=== PATIENT | female | born 1970 | race Two or more races ===

== ENCOUNTER 2021-06-02 14:22 | Emergency (ER) | payer OTHER ==
[~2021-06-02] VITALS: Ht 167.6 cm; Wt 132.0 kg
[2021-06-02 15:47] LABS: Basophils # (auto) 0.1 10 ^3/uL (0-0.2); Basophils % (auto) 0.9 % (0.0-2.0); Eosinophils # (auto) 0.1 10 ^3/uL (0-0.8); Eosinophils % (auto) 1.1 % (0.0-7.0); Hematocrit 37.7 % (36.0-46.0); Hemoglobin 12.8 g/dL (12.2-16.2); Lymphocytes # (auto) 1.6 10 ^3/uL (0.4-5.4); Lymphocytes % (auto) 18.4 % (10.0-50.0); Mean Corpuscular Hemoglobin 30.9 pg (28.0-32.0); Mean Corpuscular Hgb Conc. 34.1 g/dL (32.0-36.0); Mean Corpuscular Volume 90.8 fL (80.0-100.0); Monocytes # (auto) 0.5 10 ^3/uL (0-1.3); Monocytes % (auto) 6.1 % (0.0-12.0); Neutrophils # (auto) 6.3 10 ^3/uL (1.6-8.6); Neutrophils % (auto) 73.5 % (37.0-80.0); Red Blood Cells 4.15 10^6/uL (4.0-5.20); Red Cell Distribution Width 14.5 % (11.8-14.3); White Blood Cell 8.6 10^3/uL (4.4-10.8)
[2021-06-02 15:59] LABS: Albumin 3.4 g/dL (3.4-5.0); Potassium 3.7 mmol/L (3.5-5.1)
[2021-06-02 16:17] LABS: Bilirubin, Total 0.3 mg/dL (0.2-1.0); Total Protein 6.8 g/dL (6.4-8.2)
[2021-06-02] MEDS ORDERED: IOHEXOL 350 MG/ML 100ML IJ ONE (19:13)
[2021-06-02] MEDS ORDERED: diphenhdrAMINE HCL 50 MG/1 ML VL IV ONE (20:15)
[2021-06-02] MEDS ORDERED: IOHEXOL 300 MG/ML 100ML BOTTLE IJ ONE (20:50)
[2021-06-02 21:30] VITALS: BP 169/79
[2021-06-02 22:00] LABS: Urine WBC None Seen /hpf (0 - 5)
[2021-06-02 22:08] LABS: Urine Bacteria NONE SEEN /hpf (None Seen); Urine Blood Negative /uL (Negative); Urine Mucus FEW (None Seen)
[2021-06-02 22:18] LABS: Urine Specific Gravity > 1.050 (1.001-1.035)
== END 2021-06-03 00:27 | disposition home or self-care (01) ==
LOC: ER 14:22
DX: R22.1 Localized swelling, mass and lump, neck (principal)
CPT/HCPCS: 36415; 70491; 71275; 80053; 81001; 84484; 85025; 93005; 96374; 99285; J1200; Q9967

== ENCOUNTER 2023-12-02 10:16 | Inpatient (IN) | payer OTHER ==
[~2023-12-02] VITALS: Ht 167.6 cm; Wt 104.0 kg
[2023-12-02 10:57] LABS: Basophils # (auto) 0.1 10 ^3/uL (0-0.2); Basophils % (auto) 0.5 % (0.0-2.0); Eosinophils # (auto) 0 10 ^3/uL (0-0.8); Hematocrit 39.7 % (36.0-46.0); Hemoglobin 13.9 g/dL (12.2-16.2); Lymphocytes # (auto) 0.8 10 ^3/uL (0.4-5.4); Mean Corpuscular Hemoglobin 31.6 pg (28.0-32.0); Mean Corpuscular Hgb Conc. 34.9 g/dL (32.0-36.0); Mean Corpuscular Volume 90.5 fL (80.0-100.0); Monocytes # (auto) 0.9 10 ^3/uL (0-1.3); Monocytes % (auto) 4.1 % (0.0-12.0); Neutrophils # (auto) 19.3 10 ^3/uL (1.6-8.6); Neutrophils % (auto) 91.4 % (37.0-80.0); Platelet Count (auto) 323 10^3/uL (140-450); Red Blood Cells 4.39 10^6/uL (4.0-5.20); Red Cell Distribution Width 14.2 % (11.8-14.3); White Blood Cell 21.1 10^3/uL (4.4-10.8)
[2023-12-02 11:16] LABS: Alanine Aminotransferase 160 U/L (7-40); Albumin 4.1 g/dL (3.2-4.8); Alkaline Phosphatase 735 U/L (46-116); Anion Gap 9 (5-15); Aspartate Aminotransferase 175 U/L (13-40); BUN/Creatinine Ratio 29.8 (10.0-20.0); Bilirubin, Total 2.3 mg/dL (0.2-1.0); Blood Urea Nitrogen 36 mg/dL (9-23); Calcium 9.4 mg/dL (8.7-10.4); Carbon Dioxide 26 mmol/L (20-30); Chloride 87 mmol/L (98-107); Glucose 113 mg/dL (74-106); Lipase 27 U/L (12-53); Sodium 122 mmol/L (136-145)
[2023-12-02 11:17] LABS: Total Protein 6.9 g/dL (5.7-8.2)
[2023-12-02 12:29] LABS: Urine Bacteria None Seen /hpf (None Seen)
[2023-12-02 13:06] LABS: Urine Blood TRACE /uL (Negative); Urine Clarity Turbid (Clear); Urine Color Dark-Yellow (Yellow); Urine Mucus FEW (None Seen); Urine Protein, UAD 1+ (Negative); Urine Specific Gravity 1.033 (1.001-1.035); Urine Urobilinogen 8 mg/dL (Negative); Urine WBC 18 /hpf (0 - 5); Urine pH 5.5 (5.0-9.0)
[2023-12-02] MEDS: SODIUM CHLORIDE 0.9% 1,000 ML IV ONE (13:25)
[2023-12-02] MEDS: ONDANSETRON HCL 4 MG/2 ML VIAL IM ONE (13:25)
[2023-12-02] MEDS: fentaNYL CITRATE 100 MCG/2 ML VL IM ONE (16:00)
[2023-12-02] MEDS: cefTRIAXone 1GM/50ML D5W 50 ML IV ONE (16:09)
[2023-12-02] MEDS ORDERED: SODIUM CHLORIDE 0.9% 1,000 ML IV SCH (16:30)
[2023-12-02] MEDS: metroNIDAZOLE 500MG/100ML 100 ML IV ONE (16:31)
[2023-12-02] MEDS: POTASSIUM CHL 20MEQ/100ML 100 ML IV ONE (17:19)
[2023-12-02] MEDS: SODIUM CHLORIDE 0.9% 1,000 ML IV SCH (17:30)
[2023-12-02 17:40] LABS: INR 1.05 (0.9-1.15); Partial Thromboplastin Time 32.9 SEC (24.5-34.5); Prothrombin Time 11.1 sec (9.3-11.8)
[2023-12-02] MEDS: NICOTINE 7MG/24HR TOPICAL PATCH TD ONE (19:17)
[2023-12-02] MEDS: PANTOPRAZOLE 40 MG/10 ML VIAL INJ IV ONE (19:18)
[2023-12-02] MEDS: POTASSIUM CHL 20MEQ/100ML 100 ML IV SCH (20:06)
[2023-12-02] MEDS: HYDROcodone-ACET 5/325MG TAB PO PRN (20:34)
[2023-12-02] MEDS: metroNIDAZOLE 500MG/100ML 100 ML IV SCH (22:15)
[2023-12-03] VITALS (9 sets, daily range): BP systolic 99–103; BP diastolic 62–68; PULSE 83–103; RESP 16–20; TEMP 97.7–98.3; O2SAT 93–98
[2023-12-03 04:14] LABS: Basophils # (auto) 0 10 ^3/uL (0-0.2); Basophils % (auto) 0.2 % (0.0-2.0); Eosinophils # (auto) 0 10 ^3/uL (0-0.8); Eosinophils % (auto) 0.2 % (0.0-7.0); Hematocrit 35.6 % (36.0-46.0); Hemoglobin 12.3 g/dL (12.2-16.2); Lymphocytes # (auto) 0.9 10 ^3/uL (0.4-5.4); Lymphocytes % (auto) 4.6 % (10.0-50.0); Mean Corpuscular Hemoglobin 31.6 pg (28.0-32.0); Mean Corpuscular Hgb Conc. 34.5 g/dL (32.0-36.0); Mean Corpuscular Volume 91.7 fL (80.0-100.0); Monocytes % (auto) 5.4 % (0.0-12.0); Neutrophils # (auto) 17.5 10 ^3/uL (1.6-8.6); Neutrophils % (auto) 89.6 % (37.0-80.0); Platelet Count (auto) 299 10^3/uL (140-450); Red Blood Cells 3.89 10^6/uL (4.0-5.20); Red Cell Distribution Width 14.6 % (11.8-14.3); White Blood Cell 19.5 10^3/uL (4.4-10.8)
[2023-12-03 04:43] LABS: Alanine Aminotransferase 92 U/L (7-40); Albumin 3.6 g/dL (3.2-4.8); Alkaline Phosphatase 462 U/L (46-116); Anion Gap 9 (5-15); Aspartate Aminotransferase 37 U/L (13-40); BUN/Creatinine Ratio 36.8 (10.0-20.0); Blood Urea Nitrogen 28 mg/dL (9-23); Carbon Dioxide 24 mmol/L (20-30); Chloride 93 mmol/L (98-107); Glucose 81 mg/dL (74-106); Potassium 3.5 mmol/L (3.5-5.1); Sodium 126 mmol/L (136-145); Total Protein 6.1 g/dL (5.7-8.2)
[2023-12-03] MEDS: ONDANSETRON HCL 4 MG/2 ML VIAL IV PRN (08:26)
[2023-12-03] MEDS: MORPHINE SULFATE INJ 2 MG/ml SYRG IV PRN (08:27)
[2023-12-03] MEDS: cefTRIAXone 1GM/50ML D5W 50 ML IV SCH (09:06)
[2023-12-03] MEDS: PANTOPRAZOLE 40 MG TAB PO ONE (09:33)
[2023-12-03] MEDS ORDERED: PANTOPRAZOLE 40 MG/10 ML VIAL INJ IV SCH (10:00)
[2023-12-03] MEDS: NICOTINE 7MG/24HR TOPICAL PATCH TD SCH (10:07)
[2023-12-03] MEDS: SUCRALFATE 1 GM TAB PO SCH (11:30)
[2023-12-03] MEDS: ACETAMINOPHEN 325 MG TAB PO PRN (11:53)
[2023-12-03 12:46] LABS: Rapid Influenza A Negative (Negative); Rapid Influenza B Negative (Negative)
[2023-12-03 13:04] LABS: COVID19 ANTIGEN SOFIA FIA NEGATIVE (NEGATIVE)
[2023-12-03] MEDS ORDERED: ALBU108A5 PO (14:38)
[2023-12-03] MEDS ORDERED: HYDR25TA5 PO (14:38)
[2023-12-03] MEDS ORDERED: PANT40T PO (14:38)
[2023-12-03] MEDS ORDERED: ALPR1TAB7 PO (14:38)
[2023-12-03] MEDS ORDERED: PIPERACILLIN-TAZOB 3.375GM 100 ML IV ONE ×2 (15:15→15:30)
[2023-12-03] MEDS: SODIUM CHLORIDE 0.9% 250 ML IV ONE (15:47)
[2023-12-03] MEDS: ALBUTEROL SULF 2.5 MG/0.5ML(0.5%) NEB SOLN NEB PRN (16:05)
[2023-12-03] MEDS: FAMOTIDINE (10MG/ML) 2ML VL IV ONE (17:11)
[2023-12-03] MEDS: PIPERACILLIN-TAZOB 3.375GM 100 ML IV ONE (17:11)
[2023-12-03] MEDS: PIPERACILLIN-TAZOB 3.375GM 100 ML IV SCH (21:42)
[2023-12-03] MEDS: FAMOTIDINE (10MG/ML) 2ML VL IV SCH (21:42)
[2023-12-03 23:40] LABS: Amphetamine Screen, Urine Neg (NEGATIVE); Barbiturate Scree,Urine Neg (NEGATIVE); Benzodiazephine Screen, Urine Pos (NEGATIVE)
[2023-12-03 23:41] LABS: Cannabinoid Screen, Urine Neg (NEGATIVE); Cocaine Screen, Urine Neg (NEGATIVE); Opiate Scree,Urine Pos (NEGATIVE); Phencyclidine Screen, Urine Neg (NEGATIVE)
[2023-12-04] VITALS (13 sets, daily range): BP systolic 107–123; BP diastolic 63–82; PULSE 68–106; RESP 14–22; TEMP 97.9–98.4; O2SAT 90–99
[2023-12-04] MEDS ORDERED: PANTOPRAZOLE 40 MG TAB PO SCH (06:00)
[2023-12-04] MEDS: diphenhdrAMINE HCL 50 MG/1 ML VL IV PRN (08:22)
[2023-12-04 08:23] LABS: Basophils # (auto) 0 10 ^3/uL (0-0.2); Basophils % (auto) 0.1 % (0.0-2.0); Eosinophils # (auto) 0 10 ^3/uL (0-0.8); Hematocrit 34.8 % (36.0-46.0); Hemoglobin 11.8 g/dL (12.2-16.2); Lymphocytes # (auto) 0.9 10 ^3/uL (0.4-5.4); Lymphocytes % (auto) 4.7 % (10.0-50.0); Mean Corpuscular Hemoglobin 30.9 pg (28.0-32.0); Mean Corpuscular Hgb Conc. 33.8 g/dL (32.0-36.0); Mean Corpuscular Volume 91.4 fL (80.0-100.0); Monocytes # (auto) 1.2 10 ^3/uL (0-1.3); Monocytes % (auto) 6.4 % (0.0-12.0); Neutrophils # (auto) 16.4 10 ^3/uL (1.6-8.6); Neutrophils % (auto) 88.8 % (37.0-80.0); Platelet Count (auto) 316 10^3/uL (140-450); Red Blood Cells 3.81 10^6/uL (4.0-5.20); Red Cell Distribution Width 14.9 % (11.8-14.3); White Blood Cell 18.5 10^3/uL (4.4-10.8)
[2023-12-04 08:44] LABS: Alanine Aminotransferase 53 U/L (7-40); Alkaline Phosphatase 318 U/L (46-116); Calcium 9.1 mg/dL (8.7-10.4); Carbon Dioxide 23 mmol/L (20-30); Chloride 101 mmol/L (98-107); Glucose 95 mg/dL (74-106); Potassium 2.9 mmol/L (3.5-5.1)
[2023-12-04 08:45] LABS: Albumin 3.4 g/dL (3.2-4.8); Anion Gap 11 (5-15); Aspartate Aminotransferase 16 U/L (13-40); BUN/Creatinine Ratio 18.4 (10.0-20.0); Bilirubin, Total 0.8 mg/dL (0.2-1.0); Blood Urea Nitrogen 9 mg/dL (9-23); Magnesium 2.1 mg/dL (1.6-2.6)
[2023-12-04 08:46] LABS: Total Protein 5.7 g/dL (5.7-8.2)
[2023-12-04 08:51] LABS: Sodium 135 mmol/L (136-145)
[2023-12-04] MEDS: POTASSIUM CHLORIDE 60 MEQ, LIDOCAINE 1% (LOCAL ANESTH.) 6 ML in SODIUM CHL 0.9% 500 ML IV ONE (11:42)
[2023-12-04] MEDS: MORPHINE SULFATE INJ 2 MG/ml SYRG IV PRN (11:46)
[2023-12-04] MEDS: POTASSIUM CHL 20 Meq TABLET PO ONE (17:52)
[2023-12-04 20:01] LABS: Chloride 104 mmol/L (98-107); Potassium 3.5 mmol/L (3.5-5.1); Sodium 136 mmol/L (136-145)
[2023-12-04 20:02] LABS: Anion Gap 7 (5-15); Calcium 9.4 mg/dL (8.7-10.4); Carbon Dioxide 25 mmol/L (20-30)
[2023-12-04 20:07] LABS: BUN/Creatinine Ratio 13.3 (10.0-20.0); Blood Urea Nitrogen 6 mg/dL (9-23); Glucose 94 mg/dL (74-106)
[2023-12-05] VITALS (12 sets, daily range): BP systolic 99–128; BP diastolic 54–75; PULSE 82–99; RESP 17–18; TEMP 97.5–98; O2SAT 96–99
[2023-12-05 07:13] LABS: Basophils # (auto) 0 10 ^3/uL (0-0.2); Basophils % (auto) 0.1 % (0.0-2.0); Eosinophils # (auto) 0 10 ^3/uL (0-0.8); Eosinophils % (auto) 0.1 % (0.0-7.0); Hematocrit 31.2 % (36.0-46.0); Hemoglobin 10.7 g/dL (12.2-16.2); Lymphocytes % (auto) 5.9 % (10.0-50.0); Mean Corpuscular Hemoglobin 31.3 pg (28.0-32.0); Mean Corpuscular Hgb Conc. 34.2 g/dL (32.0-36.0); Mean Corpuscular Volume 91.4 fL (80.0-100.0); Monocytes # (auto) 1.1 10 ^3/uL (0-1.3); Monocytes % (auto) 6.8 % (0.0-12.0); Neutrophils # (auto) 14.2 10 ^3/uL (1.6-8.6); Neutrophils % (auto) 87.1 % (37.0-80.0); Platelet Count (auto) 319 10^3/uL (140-450); Red Blood Cells 3.41 10^6/uL (4.0-5.20); White Blood Cell 16.3 10^3/uL (4.4-10.8)
[2023-12-05 07:32] LABS: Alanine Aminotransferase 44 U/L (7-40); Albumin 3.2 g/dL (3.2-4.8); Alkaline Phosphatase 399 U/L (46-116); Anion Gap 7 (5-15); Aspartate Aminotransferase 20 U/L (13-40); BUN/Creatinine Ratio 13.3 (10.0-20.0); Blood Urea Nitrogen 6 mg/dL (9-23); Calcium 9.2 mg/dL (8.7-10.4); Carbon Dioxide 27 mmol/L (20-30); Chloride 105 mmol/L (98-107); Glucose 99 mg/dL (74-106); Magnesium 1.9 mg/dL (1.6-2.6); Potassium 3.6 mmol/L (3.5-5.1); Sodium 139 mmol/L (136-145)
[2023-12-05 07:33] LABS: Bilirubin, Total 0.8 mg/dL (0.2-1.0); Phosphorus 2.5 mg/dL (2.4-5.1); Total Protein 5.4 g/dL (5.7-8.2)
[2023-12-06] VITALS (13 sets, daily range): BP systolic 93–129; BP diastolic 58–84; PULSE 86–101; RESP 15–19; TEMP 97.8–98.3; O2SAT 92–100
[2023-12-06 07:28] LABS: Hematocrit 31.8 % (36.0-46.0); Hemoglobin 10.8 g/dL (12.2-16.2); Mean Corpuscular Hemoglobin 30.9 pg (28.0-32.0); Mean Corpuscular Hgb Conc. 33.8 g/dL (32.0-36.0); Mean Corpuscular Volume 91.5 fL (80.0-100.0); Platelet Count (auto) 326 10^3/uL (140-450); Red Blood Cells 3.48 10^6/uL (4.0-5.20); Red Cell Distribution Width 15.6 % (11.8-14.3); White Blood Cell 12.3 10^3/uL (4.4-10.8)
[2023-12-06 07:36] LABS: Alanine Aminotransferase 34 U/L (7-40); Alkaline Phosphatase 307 U/L (46-116); Anion Gap 4 (5-15); Blood Urea Nitrogen 6 mg/dL (9-23); Carbon Dioxide 30 mmol/L (20-30); Chloride 105 mmol/L (98-107); Glucose 92 mg/dL (74-106); Magnesium 1.7 mg/dL (1.6-2.6); Potassium 3.3 mmol/L (3.5-5.1); Sodium 139 mmol/L (136-145)
[2023-12-06 07:37] LABS: Albumin 3.1 g/dL (3.2-4.8); Aspartate Aminotransferase 21 U/L (13-40)
[2023-12-06 07:38] LABS: Bilirubin, Total 0.7 mg/dL (0.2-1.0); Total Protein 5.3 g/dL (5.7-8.2)
[2023-12-06 07:45] LABS: Basophils % (manual) 0 (0.0-2.0); Blast Cells 0; Eosinophils % (manual) 0 (0-7); Myelocytes % 0; Promyelocytes % 0; Reactive Lymphocytes 0
[2023-12-06] MEDS: POTASSIUM EFFERVESENT TAB 25 MEQ PO ONE (09:29)
[2023-12-06 12:38] LABS: Band Neutrophils % (manual) 5; Lymphocytes % (manual) 10 (10.0-50.0); Metamyelocytes % 2; Monocytes % (manual) 7 (0-12); Platelet Estimate Adequate
[2023-12-06] MEDS: LORazepam 2MG/ML-1ML VIAL IV ONE (12:59)
[2023-12-06] MEDS: MORPHINE SULFATE INJ 2 MG/ml SYRG IV PRN (17:07)
[2023-12-07] VITALS (12 sets, daily range): BP systolic 108–136; BP diastolic 69–78; PULSE 88–121; RESP 17–20; TEMP 97.8–99.7; O2SAT 96–99
[2023-12-07 07:14] LABS: Hematocrit 33.3 % (36.0-46.0); Hemoglobin 11.1 g/dL (12.2-16.2); Mean Corpuscular Hemoglobin 30.6 pg (28.0-32.0); Mean Corpuscular Hgb Conc. 33.3 g/dL (32.0-36.0); Platelet Count (auto) 335 10^3/uL (140-450); Red Blood Cells 3.62 10^6/uL (4.0-5.20); Red Cell Distribution Width 15.3 % (11.8-14.3); White Blood Cell 11.1 10^3/uL (4.4-10.8)
[2023-12-07 07:20] LABS: Band Neutrophils % (manual) 0; Basophils % (manual) 0 (0.0-2.0); Blast Cells 0; Eosinophils % (manual) 0 (0-7); Metamyelocytes % 0; Reactive Lymphocytes 0
[2023-12-07 07:28] LABS: Alanine Aminotransferase 37 U/L (7-40); Albumin 3.3 g/dL (3.2-4.8); Alkaline Phosphatase 260 U/L (46-116); Anion Gap 6 (5-15); Aspartate Aminotransferase 31 U/L (13-40); Calcium 9.3 mg/dL (8.7-10.4); Carbon Dioxide 29 mmol/L (20-30); Chloride 105 mmol/L (98-107); Glucose 101 mg/dL (74-106); Potassium 3.7 mmol/L (3.5-5.1); Sodium 140 mmol/L (136-145)
[2023-12-07 07:29] LABS: Bilirubin, Total 0.7 mg/dL (0.2-1.0); Phosphorus 3.1 mg/dL (2.4-5.1); Total Protein 5.5 g/dL (5.7-8.2)
[2023-12-07 07:39] LABS: BUN/Creatinine Ratio 10.9 (10.0-20.0); Blood Urea Nitrogen < 5 mg/dL (9-23)
[2023-12-07 07:40] LABS: INR 1.08 (0.9-1.15); Partial Thromboplastin Time 26.2 SEC (24.5-34.5); Prothrombin Time 11.4 sec (9.3-11.8)
[2023-12-07 08:15] LABS: Magnesium 1.7 mg/dL (1.6-2.6)
[2023-12-07] MEDS: ceFAZolin 2 GM/D5W100ml 100 ML IV ONE (08:47)
[2023-12-07] MEDS ORDERED: MORPHINE SULFATE INJ 2 MG/ml SYRG IV PRN (09:15)
[2023-12-07] MEDS ORDERED: HYDROmorphone HCL 2 MG/ML VL/or syr IV PRN ×2 (09:15)
[2023-12-07] MEDS: KETOROLAC TROMETH 30 MG/ML 1ML VIAL IV ONE (09:15)
[2023-12-07] MEDS: METOCLOPRAMIDE HCL 5MG/ml INJ 2ml VIAL IV ONE (09:15)
[2023-12-07] MEDS ORDERED: fentaNYL CITRATE 100 MCG/2 ML VL IV PRN (09:15)
[2023-12-07] MEDS ORDERED: MEPERIDINE HCL (50 MG/ML) 1 ML VIAL ONE (09:16)
[2023-12-07] MEDS ORDERED: MIDAZOLAM HCL 2MG/2ML 2ml VIAL (1mg/ml) ONE (09:16)
[2023-12-07] MEDS ORDERED: LIDOCAINE 1% INJ PF 5ML AMP ONE (09:16)
[2023-12-07] MEDS ORDERED: LIDOCAINE HCL 2% TOP JELLY 5ML TOP ONE (09:16)
[2023-12-07] MEDS ORDERED: PROPOFOL 10 MG/ML 20 ML IV ONE (09:16)
[2023-12-07] MEDS ORDERED: KETAMINE 50mg/ML 1ml syringe ONE (09:16)
[2023-12-07] MEDS ORDERED: DexAMETHasone SOD PHOS 10MG/1ML VIAL INJ ONE (09:16)
[2023-12-07] MEDS ORDERED: NEOSTIGMINE 1 MG/ML INJ (10mg/10ML VIAL) ONE (09:16)
[2023-12-07] MEDS ORDERED: GLYCOPYRROLATE 0.2 MG/ML 1ML VIAL ONE (09:16)
[2023-12-07] MEDS ORDERED: SODIUM CHLORIDE LOCK 10 ML ONE (09:16)
[2023-12-07] MEDS ORDERED: ROCURONIUM 10MG/ML 10ML VIAL IV ONE (09:16)
[2023-12-07] MEDS ORDERED: ONDANSETRON HCL 4 MG/2 ML VIAL ONE (09:16)
[2023-12-07] MEDS ORDERED: fentaNYL CITRATE 100 MCG/2 ML VL ONE (09:16)
[2023-12-07] MEDS: BUPIVACAINE 0.5% P/F INJ 10 ML VIAL ONE (09:17)
[2023-12-07] MEDS: LIDOCAINE W/ EPINEPHRINE 1% 20ML VIAL ONE ×2 (09:17→09:18)
[2023-12-07] MEDS: D5W/SOD CHL 0.45%/KCL 20MEQ 1,000 ML IV SCH (11:00)
[2023-12-07] MEDS: LIDOCAINE 1%-Mpf/Epinephrine 1:200,000 30ml VIAL IJ ONE (11:00)
[2023-12-07 11:34] LABS: Lymphocytes % (manual) 11 (10.0-50.0); Monocytes % (manual) 10 (0-12); Myelocytes % 1; Platelet Estimate Adequate; Promyelocytes % 1
[2023-12-07] MEDS ORDERED: SUCCINYLCHOLINE CHLORIDE 20 MG/ML 10ML VIAL IV ONE (13:15)
[2023-12-07] MEDS: HYDROcodone-ACET 5/325MG TAB PO PRN (15:09)
[2023-12-08] VITALS (11 sets, daily range): BP systolic 99–121; BP diastolic 62–71; PULSE 95–111; RESP 18–22; TEMP 98.1–98.9; O2SAT 96–98
[2023-12-08 05:53] LABS: Basophils # (auto) 0.1 10 ^3/uL (0-0.2); Basophils % (auto) 0.8 % (0.0-2.0); Eosinophils # (auto) 0 10 ^3/uL (0-0.8); Eosinophils % (auto) 0.3 % (0.0-7.0); Hematocrit 30.9 % (36.0-46.0); Hemoglobin 10.3 g/dL (12.2-16.2); Lymphocytes # (auto) 1.7 10 ^3/uL (0.4-5.4); Lymphocytes % (auto) 10.4 % (10.0-50.0); Mean Corpuscular Hemoglobin 30.4 pg (28.0-32.0); Mean Corpuscular Hgb Conc. 33.4 g/dL (32.0-36.0); Monocytes # (auto) 1.4 10 ^3/uL (0-1.3); Monocytes % (auto) 8.4 % (0.0-12.0); Neutrophils # (auto) 12.9 10 ^3/uL (1.6-8.6); Neutrophils % (auto) 80.1 % (37.0-80.0); Platelet Count (auto) 279 10^3/uL (140-450); Red Blood Cells 3.39 10^6/uL (4.0-5.20); Red Cell Distribution Width 15.4 % (11.8-14.3); White Blood Cell 16.1 10^3/uL (4.4-10.8)
[2023-12-08 06:18] LABS: Alanine Aminotransferase 33 U/L (7-40); Alkaline Phosphatase 198 U/L (46-116); Anion Gap 5 (5-15); Aspartate Aminotransferase 31 U/L (13-40); Bilirubin, Total 0.7 mg/dL (0.2-1.0); Calcium 8.4 mg/dL (8.7-10.4); Carbon Dioxide 26 mmol/L (20-30); Chloride 105 mmol/L (98-107); Glucose 110 mg/dL (74-106); Magnesium 1.6 mg/dL (1.6-2.6); Potassium 3.6 mmol/L (3.5-5.1); Sodium 136 mmol/L (136-145); Total Protein 5.2 g/dL (5.7-8.2)
[2023-12-08 06:19] LABS: BUN/Creatinine Ratio 10.6 (10.0-20.0); Blood Urea Nitrogen < 5 mg/dL (9-23)
[2023-12-08] MEDS: ENOXAPARIN SOD 40 MG/0.4 ML SYRINGE SC ONE (21:00)
[2023-12-09] VITALS (11 sets, daily range): BP systolic 109–128; BP diastolic 56–73; PULSE 84–104; RESP 17–20; TEMP 97.8–98.5; O2SAT 94–99
[2023-12-09 07:37] LABS: Alanine Aminotransferase 27 U/L (7-40); Albumin 2.9 g/dL (3.2-4.8); Alkaline Phosphatase 165 U/L (46-116); Anion Gap 9 (5-15); Aspartate Aminotransferase 18 U/L (13-40); Bilirubin, Total 0.6 mg/dL (0.2-1.0); Calcium 8.8 mg/dL (8.7-10.4); Carbon Dioxide 24 mmol/L (20-30); Chloride 105 mmol/L (98-107); Glucose 99 mg/dL (74-106); Magnesium 1.7 mg/dL (1.6-2.6); Potassium 3.9 mmol/L (3.5-5.1); Sodium 138 mmol/L (136-145); Total Protein 5.2 g/dL (5.7-8.2)
[2023-12-09 07:48] LABS: BUN/Creatinine Ratio 10.9 (10.0-20.0); Blood Urea Nitrogen < 5 mg/dL (9-23)
[2023-12-09 07:50] LABS: Hematocrit 28.2 % (36.0-46.0); Hemoglobin 9.5 g/dL (12.2-16.2); Mean Corpuscular Hemoglobin 31.1 pg (28.0-32.0); Mean Corpuscular Hgb Conc. 33.6 g/dL (32.0-36.0); Mean Corpuscular Volume 92.6 fL (80.0-100.0); Platelet Count (auto) 264 10^3/uL (140-450); Red Blood Cells 3.04 10^6/uL (4.0-5.20); Red Cell Distribution Width 14.9 % (11.8-14.3); White Blood Cell 15.1 10^3/uL (4.4-10.8)
[2023-12-09 07:58] LABS: Basophils % (manual) 0 (0.0-2.0); Blast Cells 0; Eosinophils % (manual) 0 (0-7); Metamyelocytes % 0; Myelocytes % 0; Promyelocytes % 0; Reactive Lymphocytes 0
[2023-12-09 08:41] LABS: Band Neutrophils % (manual) 3; Lymphocytes % (manual) 13 (10.0-50.0); Monocytes % (manual) 11 (0-12)
[2023-12-09 08:42] LABS: Platelet Estimate Adequate
[2023-12-09] MEDS: ENOXAPARIN SOD 40 MG/0.4 ML SYRINGE SC SCH (10:38)
[2023-12-10] VITALS (7 sets, daily range): BP systolic 111–126; BP diastolic 61–71; PULSE 72–100; RESP 16–20; TEMP 97.9–98.4; O2SAT 98–100
[2023-12-10 07:02] LABS: Hematocrit 27.4 % (36.0-46.0); Hemoglobin 9.3 g/dL (12.2-16.2); Mean Corpuscular Hemoglobin 31.4 pg (28.0-32.0); Mean Corpuscular Volume 92.4 fL (80.0-100.0); Platelet Count (auto) 271 10^3/uL (140-450); Red Blood Cells 2.97 10^6/uL (4.0-5.20); Red Cell Distribution Width 15.2 % (11.8-14.3); White Blood Cell 11.1 10^3/uL (4.4-10.8)
[2023-12-10 07:07] LABS: Chloride 106 mmol/L (98-107); Potassium 3.5 mmol/L (3.5-5.1); Sodium 139 mmol/L (136-145)
[2023-12-10 07:08] LABS: Anion Gap 5 (5-15); Calcium 8.9 mg/dL (8.7-10.4); Carbon Dioxide 28 mmol/L (20-30)
[2023-12-10 07:13] LABS: Glucose 91 mg/dL (74-106)
[2023-12-10 07:15] LABS: Blood Urea Nitrogen < 5 mg/dL (9-23)
[2023-12-10 07:21] LABS: BUN/Creatinine Ratio 10.4 (10.0-20.0)
[2023-12-10 07:35] LABS: Basophils % (manual) 0 (0.0-2.0); Blast Cells 0; Eosinophils % (manual) 0 (0-7); Myelocytes % 0; Promyelocytes % 0; Reactive Lymphocytes 0
[2023-12-10 12:13] LABS: Band Neutrophils % (manual) 4; Lymphocytes % (manual) 12 (10.0-50.0); Metamyelocytes % 1; Monocytes % (manual) 5 (0-12); Platelet Estimate Adequate
[2023-12-11 01:00] VITALS: BP 124/76; PULSE 90; RESP 19; TEMP 98; O2SAT 100
[2023-12-11 05:00] VITALS: BP 113/66; PULSE 101; RESP 18; TEMP 97.9; O2SAT 99
[2023-12-11 06:57] LABS: Hematocrit 28.9 % (36.0-46.0); Hemoglobin 9.8 g/dL (12.2-16.2); Mean Corpuscular Hemoglobin 31.2 pg (28.0-32.0); Mean Corpuscular Hgb Conc. 33.9 g/dL (32.0-36.0); Mean Corpuscular Volume 92.1 fL (80.0-100.0); Platelet Count (auto) 324 10^3/uL (140-450); Red Blood Cells 3.14 10^6/uL (4.0-5.20); Red Cell Distribution Width 15.2 % (11.8-14.3); White Blood Cell 11.2 10^3/uL (4.4-10.8)
[2023-12-11 07:07] LABS: Band Neutrophils % (manual) 0; Basophils % (manual) 0 (0.0-2.0); Blast Cells 0; Metamyelocytes % 0; Promyelocytes % 0; Reactive Lymphocytes 0
[2023-12-11 07:17] LABS: Alanine Aminotransferase 24 U/L (7-40); Albumin 3.2 g/dL (3.2-4.8); Alkaline Phosphatase 151 U/L (46-116); Anion Gap 6 (5-15); Aspartate Aminotransferase 18 U/L (13-40); Carbon Dioxide 28 mmol/L (20-30); Chloride 106 mmol/L (98-107); Glucose 85 mg/dL (74-106); Potassium 3.5 mmol/L (3.5-5.1); Sodium 140 mmol/L (136-145)
[2023-12-11 07:18] LABS: Bilirubin, Total 0.4 mg/dL (0.2-1.0); Total Protein 5.7 g/dL (5.7-8.2)
[2023-12-11 07:26] LABS: BUN/Creatinine Ratio 12.8 (10.0-20.0); Blood Urea Nitrogen < 5 mg/dL (9-23)
[2023-12-11 07:30] VITALS: PULSE 88; RESP 18; O2SAT 100
[2023-12-11 09:00] VITALS: BP 114/69; PULSE 88; RESP 18; TEMP 98.3; O2SAT 100
[2023-12-11 09:00] LABS: Eosinophils % (manual) 3 (0-7); Lymphocytes % (manual) 16 (10.0-50.0); Monocytes % (manual) 3 (0-12); Myelocytes % 2; Platelet Estimate Adequate
[2023-12-11 10:30] VITALS: O2SAT 98
[2023-12-11] MEDS: FAMOTIDINE 20 MG TAB PO SCH (10:59)
[2023-12-11] MEDS ORDERED: TRAM-626 PO (12:29)
[2023-12-11] MEDS ORDERED: AUG875T PO (12:29)
[2023-12-11] MEDS ORDERED: NICO14DI9 TD (12:29)
[2023-12-11 13:08] VITALS: BP_SYST 69; PULSE 88; RESP 18; TEMP 98.3; O2SAT 100
== END 2023-12-11 13:30 | disposition home or self-care (01) | DRG 853 ==
LOC: ER 10:16 → EDBD 10:16 → OVERFLOW 16:14 → ER 16:17 → OVERFLOW 16:17 → CENTRAL 12-03 14:34 → TELE-CENTR 12-07 19:12 → CENTRAL 12-11 08:04
PROVIDERS: ADMIT Internal Medicine; ATTEND Internal Medicine
PROC: 0FT44ZZ Resection of Gallbladder, Percutaneous Endoscopic Approach (ICD-10-PCS; principal; 2023-12-07 09:20)
DX: A41.9 Sepsis, unspecified organism (principal); J18.9 Pneumonia, unspecified organism; J96.21 Acute and chronic respiratory failure with hypoxia; K80.67 Calculus of gallbladder and bile duct with acute and chronic cholecystitis with obstruction; L03.311 Cellulitis of abdominal wall; E87.1 Hypo-osmolality and hyponatremia; J90 Pleural effusion, not elsewhere classified; E66.9 Obesity, unspecified; Z20.822 Contact with and (suspected) exposure to COVID-19; E87.6 Hypokalemia; I10 Essential (primary) hypertension; N28.9 Disorder of kidney and ureter, unspecified; J45.909 Unspecified asthma, uncomplicated; K76.0 Fatty (change of) liver, not elsewhere classified; R74.01 Elevation of levels of liver transaminase levels; F17.210 Nicotine dependence, cigarettes, uncomplicated; Z91.013 Allergy to seafood; Z80.8 Family history of malignant neoplasm of other organs or systems; Z82.49 Family history of ischemic heart disease and other diseases of the circulatory system; Z68.37 Body mass index [BMI] 37.0-37.9, adult
CPT/HCPCS: 36415; 71045; 74181; 76604; 76705; 80048; 80053; 80307; 81001; 82247; 82306; 82607; 83036; 83605; 83690; 83735; 83930; 83935; 84100; 84300; 84702; 85007; 85025; 85027; 85610; 85730; 86850; 86900; 86901; 87040; 87070; 87075; 87077; 87081; 87186; 87205; 87426; 87804; 94640; 96372; 97116; 97163; 97530; 99291; 99292; G0378; J0330; J1100; J2001; J2250; J2405; J2543; J2704; J3480; J3490